=== PATIENT | male | born 1990 | race Caucasian/White ===

== ENCOUNTER 2024-01-22 20:59 | Emergency (ER) | payer OTHER ==
[2024-01-22 21:03] VITALS: RESP 18; TEMP 98.4; BMI 31.1
[2024-01-22 23:15] LABS: INR 1.04 (0.83-1.09)
[2024-01-22 23:18] LABS: ACTIVATED PTT 32.6 SECONDS (25.2-36.5)
[2024-01-22 23:31] LABS: CALCIUM 9.4 mg/dL (8.5-10.1)
[2024-01-22 23:32] LABS: ALBUMIN 4.2 g/dl (3.4-5.0); BLOOD UREA NITROGEN 16.5 mg/dL (7-18)
[2024-01-22 23:35] LABS: CREATININE 0.8 mg/dL (0.55-1.3)
[2024-01-22 23:36] LABS: BILIRUBIN,TOTAL 2.1 mg/dL (0.2-1)
[2024-01-22 23:46] LABS: BASO % 0.2 % (0-2.0); EOS % 0.3 % (0-4.5); HEMATOCRIT 41.4 % (35.4-49); HEMOGLOBIN 14.6 GM/dL (11.7-16.9); LYMPH % 30.6 % (8-40); MCH 30.8 pg (25.7-33.7); MCHC 35.3 g/dl (32.0-35.9); MEAN CELL VOLUME 87.2 fl (80-96); MEAN PLT VOLUME 8.8 fl (7.5-11.1); MONO % 8.1 % (3.8-10.2); NEUT % 60.8 % (42.8-82.8); PLATELET COUNT 184 10^3/uL (134-434); RBC 4.75 M/mm3 (4.00-5.60); RDW 15.4 % (11.9-15.9); WHITE BLOOD COUNT 6.7 K/mm3 (4.0-10.0)
[2024-01-23 00:45] VITALS: BP 153/95; PULSE 78
== END 2024-01-23 01:44 | disposition home or self-care (01) ==
LOC: JER 20:59
DX: R00.2 Palpitations (principal); R00.1 Bradycardia, unspecified
CPT/HCPCS: 36415; 71046-TC-FY; 80053; 84484; 85025; 85610; 85730; 93005; 93010; 99285-25